=== PATIENT | female | born 1975 | race African-American/Black ===

== ENCOUNTER 2019-08-07 13:45 | Emergency (ER) | payer OTHER ==
[~2019-08-07] VITALS: Ht 157.5 cm; Wt 81.6 kg
[2019-08-07] MEDS ORDERED: VALTREX1000 MG PO (14:58)
== END 2019-08-07 15:10 | disposition home or self-care (01) ==
LOC: ER 13:45
DX: B02.8 Zoster with other complications (principal); R21 Rash and other nonspecific skin eruption

== ENCOUNTER 2021-04-05 09:26 | Emergency (ER) | payer OTHER ==
[~2021-04-05] VITALS: Ht 157.5 cm; Wt 85.7 kg
[~2021-04-05 09:26] MED LIST: VALTREX1000 MG PO
== END 2021-04-05 12:02 | disposition home or self-care (01) ==
LOC: ER 09:26
DX: H92.01 Otalgia, right ear (principal); H60.8X1 Other otitis externa, right ear